=== PATIENT | female | born 1965 | race Caucasian/White ===

== ENCOUNTER → 2018-11-20 09:00 | Outpatient (CLI) | payer BC, SELFPAY ==
--- NOTE | 2018-11-20 09:05 | US_ITS ---
STUDY: THYROID ULTRASOUND REASON FOR EXAM: Female, 52 years old. Nodules. TECHNIQUE: Ultrasound evaluation of the thyroid was performed with real-time and static pineda-scale imaging. COMPARISON: None. FINDINGS: RIGHT LOBE: The right lobe of the thyroid gland measures 5.3 x 2.0 x 1.9 cm. There is a heterogeneous echotexture. This is 0.8 x 0.6 x 0.7 cm mildly hypoechoic nodule in the posterior lower lobe has peripheral vascularity. There is also a 0.5 x 0.3 x 0.4 cm mildly hypoechoic nodule in the mid thyroid. LEFT LOBE: The left lobe of the thyroid gland measures 0.4 x 2.1 x 1.6 cm. There is a heterogeneous echotexture. There is a 0.8 x 1.6 x 0.5 cm hypoechoic spongiform-appearing nodule in the anterior mid thyroid. There is a 0.5 x 0.3 x 0.5 cm hypoechoic nodule in the upper pole. There is also an ill-defined 0.6 x 0.5 x 0.6 cm nodule in the lateral mid thyroid which may simply represent heterogenous tissue. ISTHMUS: The isthmus measures 0.6 cm. There is a 1.3 x 2.5 x 0.6 cm hypoechoic focus along the anterior aspect of the isthmus slightly left of center. There is also a 1.6 x 1.3 x 0.6 cm low-attenuation nodule to the right of midline. It is uncertain whether these lie within the isthmus or represent lymph nodes external to the thyroid. There are prominent lymph nodes in the left posterior neck described as palpable lesions. These measure 0.9 x 1.0 x 0.3 cm and 1.1 x 0.7 x 0.4 cm, respectively. US/Thyroid IMPRESSION: 1. Findings consistent with multinodular goiter. The most suspicious nodule eccentric designation of TR 3, mildly suspicious. No further follow-up is required secondary to the small size. 2. Lymph nodes in the left posterior lateral neck as well as anterior to the isthmus. Electronically Signed: Irvin Martin DO at 18:48 EDT Tel [phone], Service support ,
== END ==
PROVIDERS: Referring Provider Otolaryngology; Visit Provider Otolaryngology
DX: E04.1 Nontoxic single thyroid nodule (principal)
CPT/HCPCS: 76536

== ENCOUNTER 2018-12-01 08:29 | Day surgery (SDC) | payer BC, SELFPAY ==
[2018-12-01] VITALS (7 sets, daily range): BP systolic 114–134; BP diastolic 64–80; PULSE 56–72; RESP 14–16; TEMP 36.2–36.6; O2SAT 93–98; BMI 35.2
--- NOTE | 2018-12-01 | LYMN_PTH ---
PATIENT: PARISH WALDEN LOC: [facility] – [place] U#:[id number] AGE/SX: 52/F ROOM: RE12/01/[address]: Dr. Herminio Solis MD : 1965 BED: DIS: 12/01/2018 SPEC #: [id number] RECD: 12/01/18 10:43 STATUS: JEREMY AUDI #: [id number] MORALES: 12/01/18 00:[address]: Herminio Solis DEPT: SURGICAL PATHOLOGY RECD BY: Jennie Salazar ENTERED: 12/01/18 11:04 SP TYPE: LYMPH NODE OTHR DR: No Primary Care Phys Tissues: Lymph node of neck, NOS Procedures: Frozen Section (charge) Surgery Specimen Level IV HEADER OPERATION: Radical neck biopsy / excision, lymph nodes, deep cervical nodes PRE-OP DIAGNOSIS: Cervical lymphadenopathy, dominant nodule of thyroid TISSUE SUBMITTED: Left deep cervical lymph node FROZEN SECTION DIAGNOSIS Left deep cervical lymph node, biopsy: Negative for metastatic carcinoma. SJ:jessica 12/01/18 MICROSCOPIC DIAGNOSIS Left deep cervical lymph node, biopsy: Lymph node wit reactive changes. Negative for malignancy, lymphoma or granuloma formation. Flow cytometry study from [email or web address] shows no immunophenotypic evidence of a monoclonal Bcell or aberrant T-cell population detected. The complete report is viewable in patient's EMR. See comment. SJ:jessica 12/06/18 COMMENT Immunohistochemistry ([id number]) supports the above diagnosis. Case has been reviewed in consultation with Dr. Keys who concurs with the above diagnosis. IDC:AM MICROSCOPIC DESCRIPTION Slides are reviewed. GROSS DESCRIPTION Received fresh for frozen section diagnosis labeled with the patient's name is a specimen designated left deep cervical lymph node. The specimen consists of a piece of nodule with attached surrounding adipose tissue measuring 1.5 x 1 x 0.6 cm. The specimen is bisected. Four touch imprints are prepared. One-half of the specimen is submitted for frozen section diagnosis. A section is submitted for flow cytometry study. The entire specimen is submitted in two cassettes as follows: 1 - frozen section, 2??rest of the specimen. / PAU:jessica 12/01/18 TC:5 CPT: 19596, 10141
--- NOTE | 2018-12-01 | IMM_PTH ---
PATIENT: PARISH WALDEN [place] [facility] [place][id number] AGE/SX: 52/F ROOM: RE12/01/[address]: Dr. Herminio Solis MD : 1965 BED: DIS: 12/01/2018 SPEC #: [id number] RECD: 12/04/18 14:48 STATUS: JEREMY REQ #: [id number] MORALES: 12/01/18 00:[address]: Herminio Solis DEPT: IMMUNOHISTOCHEMISTRY RECD BY: Jennie Salazar ENTERED: 12/04/18 14:50 SP TYPE: IMMUNO OTHR DR: No Primary Care Phys Tissues: Lymph node of neck, NOS Procedures: BCL-2 (add) CD20 (add) CD45 (add) CD5 (add) CD79A (add) CK8 (add) Pankeratin (add) CD3 (initial) PHYSICIAN & INSTITUTION [place] [id number] SPECIMEN INFORMATION: Tissue Source: Left deep cervical lymph node, biopsy Clinical Info: Cervical lymphadenopathy, thyroid nodule Specimen Number: [id number] 1 & 2 CPT code: 15363, 22359 x9 METHODOLOGY: Deparaffinized sections of prefer/formalin-fixed tissue or PAP/DQ stained slides are incubated with monoclonal/polyclonal antibodies/oligonucleotide probes. Localization is made via biotin free immunoperoxidase method. Appropriate controls are performed and reacted as expected. Results on target cell population are indicated in the following table: RESULTS: ANTIBODY / CLONE RESULT Block 1 AE1-3 (AE1/AE3/PCK26) negative CK8 ([id number]) negative Block 2 CK8 (52wcceE73) negative AE1-3 (AE1/AE3/PCK26) negative CD3 (PS1) positive CD5 (SP10) positive CD20 (L26) positive CD79a (11E3) positive CD45 (RP2/18) positive BCL-2 (bcl-2/100/D5) negative (in germinal center) These tests were developed and their performance characteristics determined by [facility]. They may not have been cleared or approved by the U.S. Food and Drug Administration. The FDA has determined that such clearance or approval is not necessary. INTERPRETATION: Left deep cervical lymph node, biopsy: Negative for metastatic carcinoma. Benign lymph node with reactive changes. Negative for involvement by lymphoproliferative disorder. SJ:jessica 12/05/18
--- NOTE | 2018-12-01 08:39 | EKG12_ITS ---
Test Reason : PRE OP Blood Pressure : / mmHG Vent. Rate : 061 BPM Atrial Rate : 061 BPM P-R Int : 196 ms QRS Dur : 084 ms QT Int : 424 ms P-R-T Axes : 019 021 034 degrees QTc Int : 426 ms Normal sinus rhythm Normal ECG Confirmed by ELI CLAY, SAMARA ([id number]), assignment desk editor SHANTEL AREVALO ([id number]) on 12/04/2018 2:10:13 PM Referred By: Herminio Solis Confirmed By:SAMARA BENITEZ MD
[2018-12-01 09:22] LABS: Anion Gap 6 (5-15); BUN 15 mg/dL (7-18); BUN/Creat Ratio 20.3 RATIO (10-20); Calcium,Total 8.6 mg/dL (8.5-10.1); Chloride 109 mmol/L (98-107); Creatinine, Serum 0.74 mg/dL (0.55-1.02); EST Glomerular Filtration Rate 87 mL/min (>60); Est Glom Filt Rate - Afr Amer 106 mL/min (>60); Estimated Creatinine Clearance 83.25 ml/min; Glucose 93 mg/dL (74-106); Potassium 3.5 mmol/L (3.5-5.1); Sodium Level 141 mmol/L (136-145)
--- NOTE | 2018-12-01 10:52 | PCM.OPRPT ---
Problem List (1) Adenopathy, cervical Status: Acute Report of Operation Date of Procedure: 12/01/18 Pre-Operative Diagnosis: Left cervical adenopathy Post-Operative Diagnosis: same Surgery/Procedure Performed:: Excision of left deep cervical lymph node Description of Surgical Findings:: Hannah is a 52-year-old female who presents for evaluation of a persistently enlarged lymph node over the left posterior neck. Ultrasonographic evaluation confirms enlarged lymph node in this location as well as to extrathyroidal palpable lymph nodes of the anterior neck compartment in the setting of multinodular goiter. She reported that the left node had been tender and bothersome and given its size, and the other lymphadenopathy biopsy was advised for definitive evaluation. The risks, alternatives, potential complications, and benefits were discussed at length and any questions answered to the patient and/or caregiver's satisfaction. Witnessed informed consent was obtained in the office, and the patient and/or caregiver was agreeable to proceed. Procedure went as follows: The patient was identified in the preoperative holding and brought to the operating room where the left neck was prepped and draped in usual sterile fashion. The area over the palpable left cervical lymph node was then injected with 1% lidocaine with 100,000 epinephrine for a total of 2 cc. After allowing for vasoconstriction a 15 blade scalpel was used to make a 2 cm incision over the palpable node. Dissection was then carried out through the subcutaneous tissues. The overlying aponeurosis of the platysma was then dissected where an enlarged posterior cervical lymph node was encountered. This was then dissected free from the surrounding soft tissues and the vascular pedicle ligated with monopolar cautery. This was then sent for frozen section evaluation which showed no carcinoma and sent for flow cytometry for evaluation of the lymphoma. The wound was closed deeply with interrupted 3-0 Vicryl sutures followed by running 5-0 Monocryl suture to the skin. The patient was then returned to anesthesia where she was revived and extubated without complication having tolerated the procedure well. Type of Anesthesia:: General Anesthesiologist: Herminio Erickson Special Medications: none Specimen's removed: deep cervical lymph node Drains: none Estimated Blood Loss (mL): 0 mL Fluids Replaced: 700 mL - Complications none - Admit VTE Documentation VTE Present on Admission: No VTE Mechan Device Prophylaxis: SCD's VTE Pharm Prophylaxis ordered?: No
--- NOTE | 2018-12-01 10:57 | DCINST_ITS ---
- Discharge Diagnoses Current Active Problems: Current Active and Chronic Problems Adenopathy, cervical (Acute) You will use the following diet at home:: No restrictions, Regular Discharge Activity: Return to Normal Activity Call your doctor if your incision/area has: Increased Redness, Foul Smelling Discharge, Swelling at the incision site Call your doctor if you observe: Fever of 101 or Higher, Uncontrolled pain Cleanse incision/area with: Do not get Incision Wet Allergies/Adverse Reactions: Allergies No Known Allergies Allergy (Verified 11/29/18 12:49) Medications to take at Discharge Aspirin/Acetaminophen/Caffeine [Excedrin Migraine Caplet] 1 ea PO PRN PRN 11/29/18 Esomeprazole Mag Trihydrate [Nexium] 20 mg PO PRN PRN 11/29/18 Melatonin 5 mg PO QHS 11/29/18 Primary Care Physician: Care Physician,No Primary [Primary Care Provider] - Test Results: Test results from this visit will be discussed in further detail at your follow- up appointment, if applicable. Please Follow Up With: Herminio Solis MD When: 2 weeks
== END 2018-12-01 12:30 | disposition home or self-care (01) ==
LOC: SDC 08:29 → AC 08:30
PROVIDERS: Referring Provider Otolaryngology; Visit Provider Otolaryngology
PROC: (CPT 38724; principal; 2018-12-01 09:40)
DX: R59.0 Localized enlarged lymph nodes (principal); E04.1 Nontoxic single thyroid nodule; K21.9 Gastro-esophageal reflux disease without esophagitis; G43.909 Migraine, unspecified, not intractable, without status migrainosus; M19.90 Unspecified osteoarthritis, unspecified site
CPT/HCPCS: 00320; 38510; 36415; 80048; 88305; 88331; 88341; 88342; 93005; J7120

== ENCOUNTER → 2019-05-31 09:36 | Outpatient (CLI) | payer BC, SELFPAY ==
[2018-12-01 09:09] VITALS: BMI 35.2
--- NOTE | 2019-05-31 09:40 | US_ITS ---
STUDY: THYROID ULTRASOUND REASON FOR EXAM: Female, 53 years old. F/U NODULES TECHNIQUE: Ultrasound evaluation of the thyroid was performed with real-time and static pineda-scale imaging. COMPARISON: 11/20/2018 FINDINGS: RIGHT LOBE: The right lobe of the thyroid gland measures 5.2 x 2.0 x 1.9 cm. There is a heterogeneous echotexture. Stable 0.8 and 0.5 cm nodules. There is a posterior 1.3 x 0.6 x 0.7 cm hypoechoic nodule not seen on the previous study but this may represent a parathyroid gland. LEFT LOBE: The left lobe of the thyroid gland measures 4.8 x 2.0 x 1.8 cm. There is a heterogeneous echotexture. There are no demonstrated solid, cystic or complex lesions. ISTHMUS: The isthmus measures 0.8 cm. There are lymph nodes noted superior to the isthmus measuring less than 1 cm in short axis dimension US/Thyroid IMPRESSION: Enlarged heterogeneous thyroid gland with stable right lobe nodules. There is a new 1.3 x 0.6 x 0.7 cm posterior nodule which I suspect may represent a parathyroid gland. Uptake study could be performed to assess nodule characteristics Electronically Signed: Milton Caicedo MD at 12:38 EST , Service support ,
== END ==
PROVIDERS: Referring Provider Otolaryngology; Visit Provider Otolaryngology
DX: E04.1 Nontoxic single thyroid nodule (principal)
CPT/HCPCS: 76536

== ENCOUNTER → 2019-12-11 09:25 | Outpatient (CLI) | payer BC, SELFPAY ==
[2018-12-01 09:09] VITALS: BMI 35.2
--- NOTE | 2019-12-11 09:29 | US_ITS ---
STUDY: THYROID ULTRASOUND REASON FOR EXAM: Female, 53 years old. NODULE TECHNIQUE: Ultrasound evaluation of the thyroid was performed with real-time and static pineda-scale imaging. COMPARISON: 05/31/2019 FINDINGS: RIGHT LOBE: The right lobe of the thyroid gland measures 5.2 x 2.0 x 1.8 cm. There is a heterogeneous echotexture. Nodule 1: No change in the 5 x 14 x 7 mm solid hypoechoic wider than tall ill-defined marginated nodule with no echogenic foci (TR 4) in the posterior right lobe and follow-up ultrasound is recommended in one year. LEFT LOBE: The left lobe of the thyroid gland measures 5.1 x 2.1 x 1.7 cm. There is a heterogeneous echotexture. There are no demonstrated solid, cystic or complex lesions. ISTHMUS: The isthmus measures 6 cm thick. . The regional lymph nodes are normal. US/Thyroid IMPRESSION: Thyroiditis with no change in the solid hypoechoic nodule in the posterior right lobe. Follow-up ultrasound is recommended in one year. Electronically Signed: Alexis Lamb MD at 11:13 EDT Tel , Service support ,
== END ==
PROVIDERS: Referring Provider Otolaryngology; Visit Provider Otolaryngology
DX: E04.1 Nontoxic single thyroid nodule (principal)
CPT/HCPCS: 76536

== ENCOUNTER → 2020-12-10 14:18 | Outpatient (CLI) | payer OTHER, SELFPAY ==
[2018-12-01 09:09] VITALS: BMI 35.2
--- NOTE | 2020-12-10 14:21 | US_ITS ---
STUDY: THYROID ULTRASOUND REASON FOR EXAM: Female, 54 years old. NODULE TECHNIQUE: Ultrasound evaluation of the thyroid was performed with real-time and static pineda-scale imaging. COMPARISON: 12/11/2019. FINDINGS: RIGHT LOBE: The right lobe of the thyroid gland measures 5.3 x 2.2 x 1.6 cm. There is a heterogeneous echotexture. Within the right thyroid lobe there are several hypoechoic structures with solid and cystic component in the mid lower pole measuring 1.3 x 0.8 x 0.6 cm and 1.2 x 0.9 x 4.0 cm. These reveal internal color flow and peripheral flow. The margins are regular. There is a small cyst within the mid thyroid region posteriorly measuring 0.4 x 0.3 cm. LEFT LOBE: The left lobe of the thyroid gland measures 5.0 x 2.2 x 1.5 cm. There is a heterogeneous echotexture. Within the left thyroid lobe there are 2 hypoechoic nodules measuring 1.3 x 1.3 x 0.4 cm and 1.3 x 1.2 x 0.4 cm. The margins are regular with internal flow. These appear solid with tiny cystic component not excluded. ISTHMUS: The isthmus measures 6.0 mm. The regional lymph nodes are normal. US/Thyroid IMPRESSION: Bilateral thyroid lobe nodules as described with morphology favoring benign process. Note to be made that benign as well as malignant process cannot be determined without microscopic evaluation for documentation of stability. If indicated, follow-up ultrasound in 6-12 months recommended. Electronically Signed: Annabel Corey MD at 2:52 EDT , Service support ,
[2020-12-10 17:00] LABS: Thyroid Stim Hormone (TSH) 0.63 uIU/mL (0.358-3.74)
== END ==
PROVIDERS: Referring Provider Otolaryngology; Visit Provider Otolaryngology
DX: E04.2 Nontoxic multinodular goiter (principal)
CPT/HCPCS: 36415; 76536; 84443